=== PATIENT | male | born 1935 | race Caucasian/White ===

== ENCOUNTER 2022-06-14 07:55 | Inpatient (IN) | payer MEDICARE, BC ==
[2022-06-14] MEDS ORDERED: Sodium Chloride 0.9% 10 ML Syringe FLUSH PRN (08:17)
[2022-06-14] MEDS ORDERED: Sodium Chloride 0.9% 1,000 ML IV SCH (08:30)
[2022-06-14 09:30] LABS: ESTIMATED GFR 24 mL/min (>60)
[2022-06-14] MEDS ORDERED: Ondansetron 4 MG/2 ML SDV IV PRN (13:42)
[2022-06-14] MEDS ORDERED: HYDROmorphone 0.5 MG/0.5 ML Syringe IVPUSH PRN (13:42)
[2022-06-14] MEDS ORDERED: Cyclobenzaprine 10 MG Tab PO PRN (13:42)
[2022-06-14] MEDS ORDERED: oxyCODONE 5 MG Tab PO PRN (13:42)
[2022-06-14] MEDS: Acetaminophen 325 MG Tab PO SCH ×2 (14:54→20:57)
[2022-06-14] MEDS: Lactated Ringers 1,000 ML IV SCH (15:00)
[2022-06-14] MEDS: Lidocaine 4% 1 each Patch TOP SCH (15:58)
[2022-06-15] MEDS: Acetaminophen 325 MG Tab PO SCH ×4 (02:12→19:28)
[2022-06-15] MEDS: Lactated Ringers 1,000 ML IV SCH (07:20)
[2022-06-15] MEDS: Lidocaine 4% 1 each Patch TOP SCH (10:05)
[2022-06-15] MEDS: Docusate Sodium 100 MG Cap PO SCH ×2 (10:05→10:12)
[2022-06-16] MEDS: Acetaminophen 325 MG Tab PO SCH ×4 (00:51→20:30)
[2022-06-16] MEDS: Vancomycin 125 MG Cap PO SCH ×4 (08:54→20:31)
[2022-06-16] MEDS: Lidocaine 4% 1 each Patch TOP SCH (08:55)
[2022-06-17] MEDS: Acetaminophen 325 MG Tab PO SCH ×4 (02:07→21:05)
[2022-06-17] MEDS: Vancomycin 125 MG Cap PO SCH ×4 (08:50→21:06)
[2022-06-17] MEDS: Lidocaine 4% 1 each Patch TOP SCH (08:50)
[2022-06-18] MEDS: Acetaminophen 325 MG Tab PO SCH ×5 (04:02→20:19)
[2022-06-18] MEDS: Lidocaine 4% 1 each Patch TOP SCH (09:12)
[2022-06-18] MEDS: Vancomycin 125 MG Cap PO SCH ×4 (09:12→20:20)
[2022-06-19] MEDS: Acetaminophen 325 MG Tab PO SCH ×4 (01:42→20:37)
[2022-06-19] MEDS: Vancomycin 125 MG Cap PO SCH ×4 (08:45→20:37)
[2022-06-19] MEDS: Lidocaine 4% 1 each Patch TOP SCH (08:45)
[2022-06-20] MEDS: Acetaminophen 325 MG Tab PO SCH ×5 (01:12→18:55)
[2022-06-20] MEDS: Vancomycin 125 MG Cap PO SCH ×4 (08:27→21:16)
[2022-06-20] MEDS: Lidocaine 4% 1 each Patch TOP SCH (08:27)
[2022-06-20] MEDS ORDERED: Tamsulosin 0.4 MG Cap.ER PO ONE (12:30)
[2022-06-21] MEDS: Acetaminophen 325 MG Tab PO SCH ×2 (02:18→09:17)
[2022-06-21] MEDS: Vancomycin 125 MG Cap PO SCH (09:17)
[2022-06-21] MEDS: Lidocaine 4% 1 each Patch TOP SCH (09:17)
[2022-06-21] MEDS ORDERED: Tamsulosin 0.4 MG Cap.ER PO SCH (10:00)
[2022-06-21 12:25] VITALS: BP 133/69; PULSE 65
== END 2022-06-21 13:53 | DRG 543 ==
LOC: JD.ED 07:55 → JD.MS 13:30
PROVIDERS: ADMIT Internal Medicine; ATTEND Internal Medicine
DX: M48.56XA Collapsed vertebra, not elsewhere classified, lumbar region, initial encounter for fracture (principal); A04.72 Enterocolitis due to Clostridium difficile, not specified as recurrent; C91.10 Chronic lymphocytic leukemia of B-cell type not having achieved remission; N18.4 Chronic kidney disease, stage 4 (severe); A08.11 Acute gastroenteropathy due to Norwalk agent; E78.5 Hyperlipidemia, unspecified; R41.0 Disorientation, unspecified; Z66 Do not resuscitate; Z20.822 Contact with and (suspected) exposure to COVID-19; M54.50 Low back pain, unspecified; R16.1 Splenomegaly, not elsewhere classified; D63.1 Anemia in chronic kidney disease; D69.6 Thrombocytopenia, unspecified; R33.9 Retention of urine, unspecified; M10.9 Gout, unspecified; H91.90 Unspecified hearing loss, unspecified ear; H54.7 Unspecified visual loss; Z87.442 Personal history of urinary calculi; Z79.899 Other long term (current) drug therapy
CPT/HCPCS: 36415; 51701; 51798; 72131; 72131-26; 80048; 80053; 81001; 82947; 83735; 85025; 86140; 87324; 87493; 96360; 96361; 97116-GP; 97161-GP; 97166-GO; 97530-GO; 97530-GP; 99223; 99231; 99232; 99233; 99239; 99285; 99285-25; A9270-GY; J3490; J7030; J7120; U0002